=== PATIENT | male | born 1995 | race Two or more races ===

== ENCOUNTER 2021-12-04 01:38 | Emergency (ER) | payer MEDICAID, OTHER ==
[~2021-12-04] VITALS: Ht 172.7 cm; Wt 81.6 kg
[2021-12-04] MEDS ORDERED: ACETAMINOPHEN 325 MG TAB PO ONE (05:15)
[2021-12-04 06:52] LABS: Basophils # (auto) 0 10 ^3/uL (0-0.2); Basophils % (auto) 0.3 % (0.0-2.0); Eosinophils # (auto) 0 10 ^3/uL (0-0.8); Eosinophils % (auto) 0.2 % (0.0-7.0); Hematocrit 44.7 % (41.0-53.0); Lymphocytes # (auto) 1.8 10 ^3/uL (0.4-5.4); Lymphocytes % (auto) 18.2 % (10.0-50.0); Mean Corpuscular Hemoglobin 30.5 pg (28.0-32.0); Mean Corpuscular Hgb Conc. 33.4 g/dL (32.0-36.0); Mean Corpuscular Volume 91.1 fL (80.0-100.0); Monocytes # (auto) 0.5 10 ^3/uL (0-1.3); Monocytes % (auto) 5.6 % (0.0-12.0); Neutrophils # (auto) 7.4 10 ^3/uL (1.6-8.6); Neutrophils % (auto) 75.7 % (37.0-80.0); Nucleated Red Blood Cells % 0.2 %; Red Cell Distribution Width 13.4 % (11.8-14.3); White Blood Cell 9.8 10^3/uL (4.4-10.8)
[2021-12-04 07:17] LABS: Salicylate < 1.7 mg/dL (2.8-20.0)
[2021-12-04 07:18] LABS: Albumin 4.3 g/dL (3.4-5.0); Potassium 3.5 mmol/L (3.5-5.1)
[2021-12-04 07:22] LABS: Acetaminophen < 2.0 ug/mL (10-30)
[2021-12-04 07:24] LABS: Bilirubin, Total 0.9 mg/dL (0.2-1.0); Total Protein 7.3 g/dL (6.4-8.2)
[2021-12-04 12:15] LABS: Amphetamine Screen, Urine POSITIVE (NEGATIVE); Barbiturate Scree,Urine NEGATIVE (NEGATIVE); Benzodiazephine Screen, Urine NEGATIVE (NEGATIVE); Cannabinoid Screen, Urine POSITIVE (NEGATIVE); Cocaine Screen, Urine POSITIVE (NEGATIVE); Opiate Scree,Urine NEGATIVE (NEGATIVE); Phencyclidine Screen, Urine NEGATIVE (NEGATIVE)
[2021-12-04 12:48] LABS: Urine Bacteria NONE SEEN /hpf (None Seen); Urine Blood Negative /uL (Negative); Urine Mucus FEW (None Seen); Urine WBC 1 /hpf (0 - 3)
[2021-12-05] MEDS ORDERED: ACETAMINOPHEN 500 MG TAB PO ONE (09:00)
[2021-12-06 20:00] VITALS: BP 112/71
[2021-12-07] MEDS ORDERED: LORazepam 2MG/ML-1ML VIAL ONE (02:26)
[2021-12-07] MEDS ORDERED: OLANZapine 5 MG TAB PO ONE (02:30)
[2021-12-07] MEDS ORDERED: LORazepam 2MG/ML-1ML VIAL IM ONE (02:30)
[2021-12-07] MEDS ORDERED: diphenhdrAMINE HCL 50 MG/1 ML VL ONE (02:58)
[2021-12-07] MEDS ORDERED: diphenhdrAMINE HCL 50 MG/1 ML VL IM ONE (03:00)
== END 2021-12-07 05:05 | disposition home or self-care (01) ==
LOC: ER 01:38 → EDBD 01:38 → ER 12-07 05:05
DX: S00.83XA Contusion of other part of head, initial encounter (principal); S20.212A Contusion of left front wall of thorax, initial encounter; Z20.822 Contact with and (suspected) exposure to COVID-19; X58.XXXA Exposure to other specified factors, initial encounter; Y93.89 Activity, other specified; Y92.89 Other specified places as the place of occurrence of the external cause; Y99.8 Other external cause status
CPT/HCPCS: 36415; 70450; 71046; 80053; 80307; 80329; 81001; 85025; 87426; 96372; 99285; J1200; J2060

== ENCOUNTER 2022-01-02 21:54 | Emergency (ER) | payer MEDICAID ==
[~2022-01-02] VITALS: Ht 182.9 cm; Wt 90.7 kg
[2022-01-02 23:12] LABS: Basophils # (auto) 0 10 ^3/uL (0-0.2); Basophils % (auto) 0.5 % (0.0-2.0); Eosinophils # (auto) 0 10 ^3/uL (0-0.8); Eosinophils % (auto) 0.4 % (0.0-7.0); Hematocrit 42.6 % (41.0-53.0); Hemoglobin 14.6 g/dL (13.5-17.5); Lymphocytes # (auto) 1.9 10 ^3/uL (0.4-5.4); Lymphocytes % (auto) 19.4 % (10.0-50.0); Mean Corpuscular Hemoglobin 30.8 pg (28.0-32.0); Mean Corpuscular Hgb Conc. 34.3 g/dL (32.0-36.0); Mean Corpuscular Volume 89.7 fL (80.0-100.0); Monocytes # (auto) 0.6 10 ^3/uL (0-1.3); Monocytes % (auto) 5.8 % (0.0-12.0); Neutrophils # (auto) 7.2 10 ^3/uL (1.6-8.6); Neutrophils % (auto) 73.9 % (37.0-80.0); Nucleated Red Blood Cells % 0.1 %; Red Blood Cells 4.75 10^6/uL (4.5-5.90); Red Cell Distribution Width 12.8 % (11.8-14.3); White Blood Cell 9.7 10^3/uL (4.4-10.8)
[2022-01-02 23:34] LABS: Albumin 3.9 g/dL (3.4-5.0); Anion Gap 6 (5-15); Blood Urea Nitrogen 14 mg/dL (7-18); Calcium 9.2 mg/dL (8.5-10.1); Carbon Dioxide 26 mmol/L (21-32); Chloride 107 mmol/L (98-107); Glucose 128 mg/dL (74-106); Potassium 3.8 mmol/L (3.5-5.1); Salicylate < 1.7 mg/dL (2.8-20.0); Sodium 139 mmol/L (136-145)
[2022-01-02 23:35] LABS: Acetaminophen < 2.0 ug/mL (10-30)
[2022-01-02 23:36] LABS: Alanine Aminotransferase 75 U/L (16-61); Aspartate Aminotransferase 23 U/L (15-37); BUN/Creatinine Ratio 13.9; Blood Alcohol < 3.0 mg/dL (0-5); GFR African American 116 mL/min; GFR Non-African American 96 mL/min
[2022-01-02 23:38] LABS: Alkaline Phosphatase 90 U/L (45-117); Bilirubin, Total 0.3 mg/dL (0.2-1.0); Total Protein 7.1 g/dL (6.4-8.2)
[2022-01-03] MEDS ORDERED: HALOPERIDOL LACTATE 5 MG/ML INJ VIAL ONE (01:25)
[2022-01-03] MEDS ORDERED: HALOPERIDOL LACTATE 5 MG/ML INJ VIAL IM ONE (01:30)
[2022-01-03 04:00] VITALS: BP 140/82
== END 2022-01-03 15:25 | disposition left against medical advice (07) ==
LOC: EDBD 21:54 → ER 22:05
DX: F20.9 Schizophrenia, unspecified (principal); F31.9 Bipolar disorder, unspecified
CPT/HCPCS: 36415; 80053; 80320; 80329; 85025; 96372; 99285; J1630